=== PATIENT | female | born 1955 | race Caucasian/White ===

== ENCOUNTER → 2017-06-12 | Outpatient (CLI) | payer OTHER | END | disposition home or self-care (01) | LOC: US 14:43 | DX: K21.9 Gastro-esophageal reflux disease without esophagitis (principal); E04.1 Nontoxic single thyroid nodule ==

== ENCOUNTER → 2017-06-24 | Outpatient (CLI) | payer OTHER | END | disposition home or self-care (01) | LOC: RAD 06-08 08:00 | DX: K21.9 Gastro-esophageal reflux disease without esophagitis (principal); E04.1 Nontoxic single thyroid nodule ==